=== PATIENT | male | born 1995 | race Caucasian/White ===

== ENCOUNTER 2020-08-19 21:16 | Emergency (ER) | payer MEDICAID ==
[~2020-08-19] VITALS: Ht 180.3 cm; Wt 74.0 kg
[2020-08-19 21:33] VITALS: BP 119/77
[2020-08-19] MEDS ORDERED: TETanus/Pertussis (Acell)/Diphther VAC/PF (Tdap-Adult) 0.5ml syringe IMVAC ONE (22:25)
[2020-08-19] MEDS ORDERED: LIDOcaine 1% W/epiNEPHrine 1:200,000 10ml vial IJ ONE (22:25)
[2020-08-19] MEDS ORDERED: CEPH250T PO (22:56)
== END 2020-08-20 01:38 | disposition home or self-care (01) ==
LOC: ER 21:16
DX: S61.412A Laceration without foreign body of left hand, initial encounter (principal); F17.200 Nicotine dependence, unspecified, uncomplicated; Z79.2 Long term (current) use of antibiotics; Z20.3 Contact with and (suspected) exposure to rabies; X58.XXXA Exposure to other specified factors, initial encounter; Y93.89 Activity, other specified; Y92.89 Other specified places as the place of occurrence of the external cause; Y99.8 Other external cause status
CPT/HCPCS: 12002; 90471; 90715; 99283